=== PATIENT | male | born 1980 | race Hispanic/Latino ===

== ENCOUNTER 2021-02-17 09:36 | Inpatient (IN) | payer OTHER ==
[~2021-02-17] VITALS: Ht 177.8 cm; Wt 72.6 kg
[2021-02-17] MEDS ORDERED: KETOROLAC 30MG VIAL (30MG/ML) IVP ONE (10:00)
[2021-02-17] MEDS ORDERED: 0.9%NACL 1000ML 2,000 ML IV ONE ×2 (10:00→10:10)
[2021-02-17 10:08] LABS: BASOPHILS % (AUTO) 0.3 % (0.0-5.0); HEMATOCRIT 32.9 % (36-48); LYMPHOCYTES % (AUTO) 7.8 % (21.0-51.0); MEAN CORPUSCULAR HEMOGLOBIN 30.4 pg (27.0-33.0); MEAN CORPUSCULAR HGB CONC 32.8 g/dL (32.0-36.0); MEAN CORPUSCULAR VOLUME 92.7 fL (79-99); MONOCYTES % (AUTO) 8.6 % (3.0-13.0); NEUTROPHILS % (AUTO) 81.9 % (40.0-77.0); PLATELET COUNT (AUTO) 621 K/uL (130-400); RED BLOOD CELL COUNT(AUTO) 3.55 MIL/uL (4.00-5.50); RED CELL DISTRIBUTION WIDTH 12.1 % (11.0-15.5); WHITE BLOOD COUNT (AUTO) 22.9 K/uL (4.8-10.8)
[2021-02-17] MEDS ORDERED: KETOROLAC 30MG VIAL (30MG/ML) ONE (10:09)
[2021-02-17 10:24] LABS: ALBUMIN 1.9 g/dL (3.5-5.0); BILIRUBIN,TOTAL 0.5 mg/dL (0.2-1.0); CREATININE 1.6 mg/dL (0.5-1.5); POTASSIUM 5.2 mmol/L (3.5-5.1); TOTAL PROTEIN, SERUM 9.2 g/dL (6.0-8.3)
[2021-02-17] MEDS ORDERED: 0.9%NACL 50ML 50 ML IV ONE (10:44)
[2021-02-17] MEDS: ZOSYN 3.375GM +NS 50ML IV SCH (10:49)
[2021-02-17] MEDS ORDERED: INSULIN HUMULIN R 100 UNIT/ML 3ML SQ ONE (11:00)
[2021-02-17] MEDS ORDERED: DiphenhydrAMINE HCL 50 MG/ML VIAL IV PRN (11:30)
[2021-02-17] MEDS ORDERED: ACETAMINOPHEN 325 MG TAB PO PRN (11:30)
[2021-02-17] MEDS ORDERED: ONDANSETRON 4MG INJ IV PRN (11:30)
[2021-02-17] MEDS ORDERED: INSULIN HUMULIN R 100 UNIT/ML 3ML SQ SCH (11:30)
[2021-02-17] MEDS ORDERED: VANCOMYCIN PROTOCOL PER PHARMACY IV PRN (11:30)
[2021-02-17 11:35] LABS: INR 1.12 (0.85-1.15); PROTHROMBIN TIME 12.1 SEC (9.6-11.6)
[2021-02-17 11:36] LABS: PARTIAL THROMBOPLASTIN TIME 27.6 SEC (26.3-35.5)
[2021-02-17 11:38] LABS: ABG HCO3 17.5 mmol/L (21.0-28.0); ABG OXYGEN SATURATION 97.3 % (95.0-99.0); ABG PCO2 30 mmHg (32-45)
[2021-02-17 11:50] LABS: HEMOGLOBIN A1C 12.4 % (4.0-6.0)
[2021-02-17] MEDS: 0.9%NACL 1000ML 1,000 ML IV SCH (12:12)
[2021-02-17] MEDS: INSULIN HUMULIN R 100 UNIT/ML 3ML SQ SCH ×4 (12:12→21:00)
[2021-02-17] MEDS: CEFEPIME HCL 2 GM VIAL IVP SCH ×2 (12:12→21:12)
[2021-02-17] MEDS: VANCOMYCIN 1G/250ML KIT 250 ML IV SCH (12:13)
[2021-02-17] MEDS: HEPARIN 5,000 UNIT VIAL SQ SCH ×2 (14:44→21:13)
[2021-02-17] MEDS: INSULIN GLARGINE 100 UNITS/ML 10 ML VIAL SQ SCH (14:45)
[2021-02-17 17:16] LABS: APPEARANCE,URINE Cloudy (CLEAR); BILIRUBIN,URINE Negative (NEGATIVE); COLOR,URINE Yellow (YELLOW); GLUCOSE, URINE (UA) >=1000 mg/dL (NEGATIVE); KETONES,URINE 15 mg/dL (NEGATIVE); LEUKOCYTE ESTERASE ,URINE Negative (NEGATIVE); NITRATE,URINE Negative (NEGATIVE); OCCULT BLOOD,URINE Large (NEGATIVE); PROTEIN,URINE POS 2+ mg/dL (NEGATIVE); UROBILINOGEN,URINE 0.2 mg/dL (0.2-1.0)
[2021-02-17 17:26] LABS: BACTERIA,URINE Few /HPF (None Seen)
[2021-02-17 17:27] LABS: AMORPHOUS SEDIMENT,UR Few /LPF (None Seen); SQUAMOUS EPITHELIAL CELL,UR Rare /HPF (0-2)
[2021-02-17] MEDS ORDERED: INSULIN GLARGINE 100 UNITS/ML 10 ML VIAL SQ SCH (21:00)
[2021-02-17] MEDS: FAMOTIDINE 20MG VIAL IV SCH (21:12)
[2021-02-17] MEDS: ACETAMINOPHEN 325 MG TAB PO PRN (23:21)
[2021-02-18] VITALS (17 sets, daily range): BP systolic 101–157; BP diastolic 72–95
[2021-02-18] MEDS: VANCOMYCIN 1G/250ML KIT 250 ML IV SCH ×2 (00:35→12:00)
[2021-02-18] MEDS: 0.9%NACL 1000ML 1,000 ML IV SCH (01:32)
[2021-02-18] MEDS: CEFEPIME HCL 2 GM VIAL IVP SCH ×3 (02:28→21:14)
[2021-02-18 05:02] LABS: HEMATOCRIT 26.2 % (42-54); MEAN CORPUSCULAR HEMOGLOBIN 30.3 pg (27.0-33.0); MEAN CORPUSCULAR HGB CONC 32.1 g/dL (32.0-36.0); MEAN CORPUSCULAR VOLUME 94.6 fL (79-99); RED BLOOD CELL COUNT(AUTO) 2.77 MIL/uL (4.50-6.20); RED CELL DISTRIBUTION WIDTH 12.3 % (11.0-15.5); WHITE BLOOD COUNT (AUTO) 20.6 K/uL (4.8-10.8)
[2021-02-18 05:18] LABS: CREATININE 1.5 mg/dL (0.5-1.5); POTASSIUM 4.2 mmol/L (3.5-5.1)
[2021-02-18] MEDS: INSULIN HUMULIN R 100 UNIT/ML 3ML SQ SCH ×7 (06:01→21:28)
[2021-02-18] MEDS: HEPARIN 5,000 UNIT VIAL SQ SCH ×2 (09:00→21:27)
[2021-02-18] MEDS: ZOSYN 3.375GM +NS 50ML IV SCH (10:59)
[2021-02-18] MEDS: FAMOTIDINE 20MG VIAL IV SCH ×2 (11:01→21:14)
[2021-02-18] MEDS: INSULIN GLARGINE 100 UNITS/ML 10 ML VIAL SQ SCH (14:00)
[2021-02-18] MEDS ORDERED: DEXAMETHASONE SOD PHOSPHATE 10MG/ML 1ML VIAL ONE (14:17)
[2021-02-18] MEDS ORDERED: ROPIVACAINE 0.5% 5MG/ML 30ML IJ ONE (14:17)
[2021-02-18] MEDS ORDERED: PROPOFOL 1000 MG/100 ML 100 ML IV ONE (14:20)
[2021-02-18] MEDS ORDERED: KETAMINE 50MG/ML SYRINGE 50 MG/ML DISP.SYRIN IV ONE (14:21)
[2021-02-18] MEDS ORDERED: MIDAZOLAM HCL 1 MG/ML 2ML VIAL ONE (14:28)
[2021-02-18] MEDS ORDERED: GLYCOPYRROLATE 1 MG/5 ML SYRINGE ONE (14:49)
[2021-02-18] MEDS ORDERED: FENTANYL CITRATE PF 50 MCG/1 ML 2ML VIAL ONE (14:54)
[2021-02-19] VITALS (7 sets, daily range): BP systolic 101–126; BP diastolic 58–84
[2021-02-19] MEDS: VANCOMYCIN 1G/250ML KIT 250 ML IV SCH ×3 (00:43→23:28)
[2021-02-19] MEDS: 0.9%NACL 1000ML 1,000 ML IV SCH ×2 (00:49→17:23)
[2021-02-19] MEDS: CEFEPIME HCL 2 GM VIAL IVP SCH ×3 (00:52→20:04)
[2021-02-19 04:10] LABS: BASOPHILS % (AUTO) 0.2 % (0.0-5.0); LYMPHOCYTES % (AUTO) 5.9 % (21.0-51.0); MEAN CORPUSCULAR HGB CONC 32.3 g/dL (32.0-36.0); MEAN CORPUSCULAR VOLUME 92.9 fL (79-99); MONOCYTES % (AUTO) 1.8 % (3.0-13.0); NEUTROPHILS % (AUTO) 90.9 % (40.0-77.0); PLATELET COUNT (AUTO) 537 K/uL (130-400); RED CELL DISTRIBUTION WIDTH 12.4 % (11.0-15.5)
[2021-02-19 04:24] LABS: CREATININE 1.4 mg/dL (0.5-1.5)
[2021-02-19 04:34] LABS: % IRON SATURATION 46.2 % (30-44); CRP QUANTITATIVE 348.2 mg/L (0.00-9.0)
[2021-02-19 05:22] LABS: ERYTHROCYTE SEDIMENTATION RATE 135 MM/HR (0-15)
[2021-02-19] MEDS: INSULIN HUMULIN R 100 UNIT/ML 3ML SQ SCH ×7 (06:20→20:05)
[2021-02-19] MEDS: INSULIN GLARGINE 100 UNITS/ML 10 ML VIAL SQ SCH ×2 (06:32→13:52)
[2021-02-19] MEDS: ACETAMINOPHEN 325 MG TAB PO PRN (06:41)
[2021-02-19] MEDS: FAMOTIDINE 20MG VIAL IV SCH ×2 (08:51→20:04)
[2021-02-19] MEDS: HEPARIN 5,000 UNIT VIAL SQ SCH ×3 (09:36→20:05)
[2021-02-19] MEDS: HYDROCODONE/ACETAMINOPHEN 5/325 MG TAB PO PRN ×2 (14:55→23:27)
[2021-02-20] MEDS: CEFEPIME HCL 2 GM VIAL IVP SCH ×3 (03:35→20:18)
[2021-02-20 03:38] VITALS: BP 128/87
[2021-02-20] MEDS: 0.9%NACL 1000ML 1,000 ML IV SCH ×2 (03:41→19:30)
[2021-02-20 04:01] LABS: BASOPHILS % (AUTO) 0.2 % (0.0-5.0); EOSINOPHILS % (AUTO) 0.2 % (0.0-8.0); HEMATOCRIT 21.6 % (42-54); LYMPHOCYTES % (AUTO) 24.7 % (21.0-51.0); MEAN CORPUSCULAR HEMOGLOBIN 30.4 pg (27.0-33.0); MEAN CORPUSCULAR HGB CONC 32.4 g/dL (32.0-36.0); MEAN CORPUSCULAR VOLUME 93.9 fL (79-99); MONOCYTES % (AUTO) 7.6 % (3.0-13.0); NEUTROPHILS % (AUTO) 65.3 % (40.0-77.0); PLATELET COUNT (AUTO) 493 K/uL (130-400); RED CELL DISTRIBUTION WIDTH 12.5 % (11.0-15.5); WHITE BLOOD COUNT (AUTO) 12.3 K/uL (4.8-10.8)
[2021-02-20 04:16] LABS: CREATININE 1.4 mg/dL (0.5-1.5)
[2021-02-20] MEDS: INSULIN HUMULIN R 100 UNIT/ML 3ML SQ SCH ×6 (06:01→20:19)
[2021-02-20] MEDS: INSULIN GLARGINE 100 UNITS/ML 10 ML VIAL SQ SCH (06:32)
[2021-02-20 08:03] VITALS: BP 113/64
[2021-02-20] MEDS: FAMOTIDINE 20MG VIAL IV SCH ×2 (10:37→20:18)
[2021-02-20 11:01] VITALS: BP 126/84
[2021-02-20] MEDS: VANCOMYCIN 1G/250ML KIT 250 ML IV SCH ×3 (11:50→23:33)
[2021-02-20 16:38] VITALS: BP 129/91
[2021-02-20] MEDS ORDERED: INSULIN HUMULIN R 100 UNIT/ML 3ML SQ SCH (17:00)
[2021-02-20] MEDS: HYDROCODONE/ACETAMINOPHEN 5/325 MG TAB PO PRN ×2 (17:25→23:20)
[2021-02-20 20:25] VITALS: BP 128/86
[2021-02-21 00:01] VITALS: BP 128/85
[2021-02-21] MEDS: CEFEPIME HCL 2 GM VIAL IVP SCH ×3 (03:38→18:34)
[2021-02-21 04:01] VITALS: BP 133/90
[2021-02-21 04:16] LABS: BASOPHILS % (AUTO) 0.5 % (0.0-5.0); EOSINOPHILS % (AUTO) 1.2 % (0.0-8.0); LYMPHOCYTES % (AUTO) 24.7 % (21.0-51.0); MEAN CORPUSCULAR HEMOGLOBIN 30.1 pg (27.0-33.0); MEAN CORPUSCULAR HGB CONC 32.3 g/dL (32.0-36.0); MEAN CORPUSCULAR VOLUME 93.2 fL (79-99); MONOCYTES % (AUTO) 10.3 % (3.0-13.0); NEUTROPHILS % (AUTO) 60.9 % (40.0-77.0); PLATELET COUNT (AUTO) 514 K/uL (130-400); RED BLOOD CELL COUNT(AUTO) 2.79 MIL/uL (4.50-6.20); RED CELL DISTRIBUTION WIDTH 12.8 % (11.0-15.5); WHITE BLOOD COUNT (AUTO) 8.5 K/uL (4.8-10.8)
[2021-02-21 04:26] LABS: CREATININE 1.2 mg/dL (0.5-1.5); POTASSIUM 4.4 mmol/L (3.5-5.1)
[2021-02-21] MEDS: INSULIN HUMULIN R 100 UNIT/ML 3ML SQ SCH ×9 (05:56→21:00)
[2021-02-21 07:30] VITALS: BP 155/103
[2021-02-21] MEDS: HYDROCODONE/ACETAMINOPHEN 5/325 MG TAB PO PRN ×2 (07:34→18:35)
[2021-02-21] MEDS: 0.9%NACL 1000ML 1,000 ML IV SCH ×2 (08:50→21:20)
[2021-02-21] MEDS: INSULIN GLARGINE 100 UNITS/ML 10 ML VIAL SQ SCH (09:00)
[2021-02-21 11:00] VITALS: BP 128/74
[2021-02-21] MEDS: FAMOTIDINE 20MG VIAL IV SCH ×2 (11:50→21:19)
[2021-02-21] MEDS: VANCOMYCIN 1G/250ML KIT 250 ML IV SCH ×2 (12:00→21:19)
[2021-02-21 16:00] VITALS: BP 160/95
[2021-02-21 20:24] VITALS: BP 147/88
[2021-02-22] VITALS (20 sets, daily range): BP systolic 102–169; BP diastolic 60–111
[2021-02-22] MEDS: CEFEPIME HCL 2 GM VIAL IVP SCH ×3 (03:13→19:49)
[2021-02-22 04:16] LABS: BASOPHILS % (AUTO) 0.4 % (0.0-5.0); EOSINOPHILS % (AUTO) 1.8 % (0.0-8.0); HEMATOCRIT 23.6 % (42-54); LYMPHOCYTES % (AUTO) 26.2 % (21.0-51.0); MEAN CORPUSCULAR HEMOGLOBIN 29.8 pg (27.0-33.0); MEAN CORPUSCULAR HGB CONC 32.2 g/dL (32.0-36.0); MEAN CORPUSCULAR VOLUME 92.5 fL (79-99); MONOCYTES % (AUTO) 10.6 % (3.0-13.0); NEUTROPHILS % (AUTO) 58.9 % (40.0-77.0); PLATELET COUNT (AUTO) 484 K/uL (130-400); RED BLOOD CELL COUNT(AUTO) 2.55 MIL/uL (4.50-6.20); RED CELL DISTRIBUTION WIDTH 12.8 % (11.0-15.5); WHITE BLOOD COUNT (AUTO) 8.5 K/uL (4.8-10.8)
[2021-02-22 04:40] LABS: CREATININE 1.5 mg/dL (0.5-1.5); POTASSIUM 4.1 mmol/L (3.5-5.1)
[2021-02-22] MEDS: INSULIN HUMULIN R 100 UNIT/ML 3ML SQ SCH ×7 (06:03→20:48)
[2021-02-22] MEDS: VANCOMYCIN 1G/250ML KIT 250 ML IV SCH ×2 (07:05→19:49)
[2021-02-22] MEDS: FAMOTIDINE 20MG VIAL IV SCH ×2 (09:00→19:49)
[2021-02-22] MEDS ORDERED: FENTANYL CITRATE PF 50 MCG/1 ML 5ML AMP IV ONE (11:09)
[2021-02-22] MEDS ORDERED: PROPOFOL 10 MG/ML 20ML VIAL IV ONE (11:09)
[2021-02-22] MEDS ORDERED: MIDAZOLAM HCL 1 MG/ML 2ML VIAL ONE (11:09)
[2021-02-22] MEDS ORDERED: SUCCINYLCHOLINE CHLORIDE 20 MG/ML 10 ML VIAL ONE (11:19)
[2021-02-22] MEDS ORDERED: ROCURONIUM 10MG/1ML SYR 10 MG/ML ML ONE (11:19)
[2021-02-22] MEDS ORDERED: ROPIVACAINE 0.5% 5MG/ML 30ML IJ ONE (11:28)
[2021-02-22] MEDS: 0.9%NACL 1000ML 1,000 ML IV SCH (11:30)
[2021-02-22] MEDS ORDERED: ONDANSETRON 4MG INJ ONE (11:52)
[2021-02-22] MEDS ORDERED: DEXAMETHASONE SOD PHOSPHATE 10MG/ML 1ML VIAL ONE (12:12)
[2021-02-22] MEDS ORDERED: GLYCOPYRROLATE 1 MG/5 ML SYRINGE ONE (12:16)
[2021-02-22] MEDS ORDERED: NEOSTIGMINE 5MG/5ML SYR IV ONE (12:16)
[2021-02-22] MEDS ORDERED: LABETALOL 20MG VIAL IV ONE (12:58)
[2021-02-22] MEDS: LABETALOL 20MG SYG IV ONE ×2 (13:04→13:05)
[2021-02-22] MEDS: INSULIN GLARGINE 100 UNITS/ML 10 ML VIAL SQ SCH (14:15)
[2021-02-22] MEDS: ACETAMINOPHEN 325 MG TAB PO PRN (22:50)
[2021-02-23] VITALS (7 sets, daily range): BP systolic 136–161; BP diastolic 89–99
[2021-02-23] MEDS: 0.9%NACL 1000ML 1,000 ML IV SCH ×2 (00:31→14:10)
[2021-02-23] MEDS: CEFEPIME HCL 2 GM VIAL IVP SCH ×3 (03:21→19:43)
[2021-02-23] MEDS: HYDRALAZINE 20MG/ML VIAL IV PRN (03:40)
[2021-02-23] MEDS: HYDROCODONE/ACETAMINOPHEN 5/325 MG TAB PO PRN (03:41)
[2021-02-23] MEDS: INSULIN HUMULIN R 100 UNIT/ML 3ML SQ SCH ×7 (06:14→21:02)
[2021-02-23 08:17] LABS: BASOPHILS % (AUTO) 0.3 % (0.0-5.0); EOSINOPHILS % (AUTO) 1.2 % (0.0-8.0); HEMATOCRIT 23.2 % (42-54); LYMPHOCYTES % (AUTO) 16.4 % (21.0-51.0); MEAN CORPUSCULAR HEMOGLOBIN 30.2 pg (27.0-33.0); MEAN CORPUSCULAR HGB CONC 33.6 g/dL (32.0-36.0); MEAN CORPUSCULAR VOLUME 89.9 fL (79-99); MONOCYTES % (AUTO) 11.8 % (3.0-13.0); NEUTROPHILS % (AUTO) 68.3 % (40.0-77.0); PLATELET COUNT (AUTO) 504 K/uL (130-400); RED BLOOD CELL COUNT(AUTO) 2.58 MIL/uL (4.50-6.20); WHITE BLOOD COUNT (AUTO) 15.2 K/uL (4.8-10.8)
[2021-02-23 08:28] LABS: CREATININE 1.3 mg/dL (0.5-1.5); POTASSIUM 3.4 mmol/L (3.5-5.1)
[2021-02-23] MEDS: INSULIN GLARGINE 100 UNITS/ML 10 ML VIAL SQ SCH (09:29)
[2021-02-23] MEDS: FAMOTIDINE 20MG VIAL IV SCH ×2 (09:31→19:43)
[2021-02-23] MEDS: 0.9% NACL 250ML 250 ML IV SCH (20:59)
[2021-02-23] MEDS: VANCOMYCIN 750MG VIAL IVPB SCH (20:59)
[2021-02-24] VITALS (8 sets, daily range): BP systolic 125–159; BP diastolic 90–101
[2021-02-24] MEDS: CEFEPIME HCL 2 GM VIAL IVP SCH ×3 (03:10→18:34)
[2021-02-24] MEDS: HYDROCODONE/ACETAMINOPHEN 5/325 MG TAB PO PRN (03:33)
[2021-02-24 04:11] LABS: CREATININE 1.3 mg/dL (0.5-1.5); POTASSIUM 3.8 mmol/L (3.5-5.1)
[2021-02-24] MEDS: INSULIN HUMULIN R 100 UNIT/ML 3ML SQ SCH ×7 (06:28→20:57)
[2021-02-24] MEDS: FAMOTIDINE 20MG VIAL IV SCH ×2 (09:41→20:23)
[2021-02-24] MEDS: INSULIN GLARGINE 100 UNITS/ML 10 ML VIAL SQ SCH (09:41)
[2021-02-24] MEDS: VANCOMYCIN 750MG VIAL IVPB SCH ×2 (09:41→20:24)
[2021-02-24] MEDS: 0.9% NACL 250ML 250 ML IV SCH (20:24)
[2021-02-25] MEDS: CEFEPIME HCL 2 GM VIAL IVP SCH ×3 (03:11→18:42)
[2021-02-25 04:00] VITALS: BP 158/103
[2021-02-25 05:02] LABS: BASOPHILS % (AUTO) 0.4 % (0.0-5.0); EOSINOPHILS % (AUTO) 2.4 % (0.0-8.0); HEMATOCRIT 21.6 % (42-54); MEAN CORPUSCULAR HEMOGLOBIN 29.7 pg (27.0-33.0); MEAN CORPUSCULAR HGB CONC 31.5 g/dL (32.0-36.0); MEAN CORPUSCULAR VOLUME 94.3 fL (79-99); MONOCYTES % (AUTO) 11.6 % (3.0-13.0); NEUTROPHILS % (AUTO) 56.4 % (40.0-77.0); PLATELET COUNT (AUTO) 423 K/uL (130-400); RED BLOOD CELL COUNT(AUTO) 2.29 MIL/uL (4.50-6.20); RED CELL DISTRIBUTION WIDTH 13.3 % (11.0-15.5); WHITE BLOOD COUNT (AUTO) 9.9 K/uL (4.8-10.8)
[2021-02-25 05:21] LABS: ALBUMIN 1.9 g/dL (3.5-5.0); BILIRUBIN,TOTAL 0.2 mg/dL (0.2-1.0); CREATININE 1.1 mg/dL (0.5-1.5); POTASSIUM 3.3 mmol/L (3.5-5.1); TOTAL PROTEIN, SERUM 6.7 g/dL (6.0-8.3)
[2021-02-25] MEDS: INSULIN HUMULIN R 100 UNIT/ML 3ML SQ SCH ×7 (05:38→20:54)
[2021-02-25 09:42] VITALS: BP 140/59
[2021-02-25] MEDS: VANCOMYCIN 750MG VIAL IVPB SCH ×2 (10:01→20:53)
[2021-02-25] MEDS: FAMOTIDINE 20MG VIAL IV SCH ×2 (10:02→20:53)
[2021-02-25] MEDS: INSULIN GLARGINE 100 UNITS/ML 10 ML VIAL SQ SCH (10:03)
[2021-02-25 12:42] VITALS: BP 158/107
[2021-02-25] MEDS: ACETAMINOPHEN 325 MG TAB PO PRN (15:01)
[2021-02-25] MEDS ORDERED: COMPOUND IV MISC 1 EACH IVSOLN MISC PRN (15:30)
[2021-02-25 16:47] VITALS: BP 161/97
[2021-02-25 20:00] VITALS: BP 144/96
[2021-02-25] MEDS: 0.9% NACL 250ML 250 ML IV SCH (20:53)
[2021-02-26] VITALS (7 sets, daily range): BP systolic 122–164; BP diastolic 82–106
[2021-02-26] MEDS: CEFEPIME HCL 2 GM VIAL IVP SCH ×3 (03:01→19:24)
[2021-02-26] MEDS: INSULIN HUMULIN R 100 UNIT/ML 3ML SQ SCH ×7 (06:22→20:31)
[2021-02-26 07:51] LABS: BASOPHILS % (AUTO) 0.4 % (0.0-5.0); EOSINOPHILS % (AUTO) 2.4 % (0.0-8.0); HEMATOCRIT 26.3 % (42-54); LYMPHOCYTES % (AUTO) 26.6 % (21.0-51.0); MEAN CORPUSCULAR HEMOGLOBIN 30.5 pg (27.0-33.0); MEAN CORPUSCULAR HGB CONC 33.1 g/dL (32.0-36.0); MEAN CORPUSCULAR VOLUME 92.3 fL (79-99); MONOCYTES % (AUTO) 10.4 % (3.0-13.0); NEUTROPHILS % (AUTO) 56.3 % (40.0-77.0); PLATELET COUNT (AUTO) 464 K/uL (130-400); RED BLOOD CELL COUNT(AUTO) 2.85 MIL/uL (4.50-6.20); RED CELL DISTRIBUTION WIDTH 13.6 % (11.0-15.5); WHITE BLOOD COUNT (AUTO) 7.6 K/uL (4.8-10.8)
[2021-02-26 08:03] LABS: POTASSIUM 3.5 mmol/L (3.5-5.1)
[2021-02-26] MEDS: IRON SUCROSE COMPLEX 100 MG in 0.9%NACL 50ML 50 ML IV SCH (09:00)
[2021-02-26] MEDS: FAMOTIDINE 20MG VIAL IV SCH ×2 (10:18→20:30)
[2021-02-26] MEDS: VANCOMYCIN 750MG VIAL IVPB SCH ×2 (10:18→20:30)
[2021-02-26] MEDS: INSULIN GLARGINE 100 UNITS/ML 10 ML VIAL SQ SCH (10:36)
[2021-02-26] MEDS: 0.9% NACL 250ML 250 ML IV SCH (20:31)
[2021-02-27 00:14] VITALS: BP 151/94
[2021-02-27] MEDS: CEFEPIME HCL 2 GM VIAL IVP SCH ×3 (03:22→20:11)
[2021-02-27] MEDS: ACETAMINOPHEN 325 MG TAB PO PRN (03:29)
[2021-02-27 04:00] VITALS: BP 153/102
[2021-02-27] MEDS: INSULIN HUMULIN R 100 UNIT/ML 3ML SQ SCH ×8 (06:12→22:20)
[2021-02-27 09:19] VITALS: BP 159/101
[2021-02-27] MEDS: FAMOTIDINE 20MG VIAL IV SCH ×2 (09:36→20:11)
[2021-02-27] MEDS: IRON SUCROSE COMPLEX 100 MG in 0.9%NACL 50ML 50 ML IV SCH (09:37)
[2021-02-27] MEDS: INSULIN GLARGINE 100 UNITS/ML 10 ML VIAL SQ SCH (09:37)
[2021-02-27] MEDS: VANCOMYCIN 750MG VIAL IVPB SCH (09:38)
[2021-02-27] MEDS: 0.9% NACL 250ML 250 ML IV SCH (09:39)
[2021-02-27 11:50] VITALS: BP 150/93
[2021-02-27 16:44] VITALS: BP 154/96
[2021-02-27 20:00] VITALS: BP 174/75
[2021-02-27] MEDS: HYDRALAZINE 20MG/ML VIAL IV PRN (20:10)
[2021-02-27] MEDS: VANCOMYCIN 500MG+NS 100ML IVPB IV SCH (22:25)
[2021-02-27] MEDS: 0.9%NACL 100ML 100 ML IV SCH (22:25)
[2021-02-28] VITALS: BP 149/94
[2021-02-28 03:39] LABS: BASOPHILS % (AUTO) 0.5 % (0.0-5.0); EOSINOPHILS % (AUTO) 2.6 % (0.0-8.0); HEMATOCRIT 21.6 % (42-54); LYMPHOCYTES % (AUTO) 25.5 % (21.0-51.0); MEAN CORPUSCULAR HEMOGLOBIN 30.5 pg (27.0-33.0); MEAN CORPUSCULAR HGB CONC 32.9 g/dL (32.0-36.0); MEAN CORPUSCULAR VOLUME 92.7 fL (79-99); MONOCYTES % (AUTO) 9.5 % (3.0-13.0); NEUTROPHILS % (AUTO) 59.8 % (40.0-77.0); PLATELET COUNT (AUTO) 395 K/uL (130-400); RED BLOOD CELL COUNT(AUTO) 2.33 MIL/uL (4.50-6.20); RED CELL DISTRIBUTION WIDTH 13.7 % (11.0-15.5); WHITE BLOOD COUNT (AUTO) 8.6 K/uL (4.8-10.8)
[2021-02-28 03:55] LABS: CREATININE 1.4 mg/dL (0.5-1.5); POTASSIUM 3.8 mmol/L (3.5-5.1)
[2021-02-28 04:00] VITALS: BP 151/95
[2021-02-28] MEDS: CEFEPIME HCL 2 GM VIAL IVP SCH ×2 (04:01→10:46)
[2021-02-28] MEDS: INSULIN HUMULIN R 100 UNIT/ML 3ML SQ SCH ×6 (06:11→16:28)
[2021-02-28 07:55] VITALS: BP 157/87
[2021-02-28] MEDS: VANCOMYCIN 500MG+NS 100ML IVPB IV SCH (08:26)
[2021-02-28] MEDS: IRON SUCROSE COMPLEX 100 MG in 0.9%NACL 50ML 50 ML IV SCH (08:26)
[2021-02-28] MEDS: 0.9%NACL 100ML 100 ML IV SCH (08:26)
[2021-02-28] MEDS: INSULIN GLARGINE 100 UNITS/ML 10 ML VIAL SQ SCH (08:46)
[2021-02-28] MEDS ORDERED: FAMOTIDINE 20MG TAB PO SCH (09:00)
[2021-02-28 11:18] VITALS: BP 163/89
[2021-02-28] MEDS ORDERED: COMPOUND IV MISC 1 EACH IVSOLN MISC PRN (13:00)
[2021-02-28] MEDS ORDERED: METF-446 PO (13:02)
[2021-02-28] MEDS ORDERED: INSU100I35 SQ ×2 (13:02)
[2021-02-28] MEDS ORDERED: LISI10TA24 PO (13:07)
[2021-02-28] MEDS ORDERED: METO25TA6 PO (13:07)
[2021-02-28] MEDS ORDERED: IRON SUCROSE COMPLEX 400 MG in 0.9% NACL 250ML 250 ML IV SCH (14:00)
[2021-02-28] MEDS ORDERED: LISINOPRIL 10 MG TABLET PO SCH (14:00)
[2021-02-28] MEDS ORDERED: METOPROLOL TARTRATE 25 MG TAB PO ONE (14:00)
[2021-02-28] MEDS ORDERED: EPOETIN ALFA-EPBX (NON-ESRD) 10,000 UNIT/ML VIAL SQ SCH (15:00)
[2021-02-28 16:20] VITALS: BP 153/85
[2021-02-28] MEDS ORDERED: GABAPENTIN 300 MG CAPSULE PO SCH (21:00)
[2021-02-28] MEDS ORDERED: METOPROLOL TARTRATE 25 MG TAB PO SCH (21:00)
[2021-03-01] MEDS ORDERED: LISINOPRIL 10 MG TABLET PO SCH (09:00)
== END 2021-02-28 18:59 | disposition home or self-care (01) | DRG 853 ==
LOC: EDH 09:36 → EDSEX 09:36 → EDHIP 09:37 → 4BH 02-18 00:42
PROVIDERS: ADMIT Internal Medicine; ATTEND Internal Medicine
PROC: 0Y6J0Z1 Detachment at Left Lower Leg, High, Open Approach (ICD-10-PCS; principal; 2021-02-18 15:03)
PROC: 30233N1 Transfusion of Nonautologous Red Blood Cells into Peripheral Vein, Percutaneous Approach (ICD-10-PCS; 2021-02-20)
PROC: 0KBT0ZZ Excision of Left Lower Leg Muscle, Open Approach (ICD-10-PCS; 2021-02-22 11:12)
DX: A41.9 Sepsis, unspecified organism (principal); A48.0 Gas gangrene; E43 Unspecified severe protein-calorie malnutrition; M72.6 Necrotizing fasciitis; E11.52 Type 2 diabetes mellitus with diabetic peripheral angiopathy with gangrene; E87.1 Hypo-osmolality and hyponatremia; N17.9 Acute kidney failure, unspecified; L02.612 Cutaneous abscess of left foot; M86.8X7 Other osteomyelitis, ankle and foot; L03.90 Cellulitis, unspecified; D64.9 Anemia, unspecified; E11.65 Type 2 diabetes mellitus with hyperglycemia; N18.9 Chronic kidney disease, unspecified; I12.9 Hypertensive chronic kidney disease with stage 1 through stage 4 chronic kidney disease, or unspecified chronic kidney disease; E11.22 Type 2 diabetes mellitus with diabetic chronic kidney disease; E87.5 Hyperkalemia; E11.621 Type 2 diabetes mellitus with foot ulcer; Z20.822 Contact with and (suspected) exposure to COVID-19; E11.69 Type 2 diabetes mellitus with other specified complication; Z60.2 Problems related to living alone; L97.529 Non-pressure chronic ulcer of other part of left foot with unspecified severity; J43.9 Emphysema, unspecified; Z68.23 Body mass index [BMI] 23.0-23.9, adult; Z56.0 Unemployment, unspecified; Z79.84 Long term (current) use of oral hypoglycemic drugs; Z91.14 Patient's other noncompliance with medication regimen; Z91.19 Patient's noncompliance with other medical treatment and regimen
CPT/HCPCS: 36415; 36430; 36600; 73630; 80048; 80053; 80061; 80202; 81001; 82607; 82728; 82746; 82803; 82948; 83036; 83540; 83550; 83605; 84145; 85025; 85027; 85045; 85610; 85651; 85730; 86140; 86850; 86900; 86901; 86923; 87040; 87070; 87076; 87077; 87186; 87205; 87635; 93925; 97039; 99291; G0378; J0330; J0360; J0692; J1100; J1200; J1644; J1756; J1815; J1885; J2250; J2405; J2543; J2704; J2710; J2795; J3010; J3370; J3490; J7030; J7050; P9016